=== PATIENT | male | born 1970 | race African-American/Black ===

== ENCOUNTER 2020-10-02 13:57 | Emergency (ER) | payer BC ==
[2020-10-02 15:00] LABS: Basophils % 0.6 % (0-1.3); Hematocrit 46.1 % (39.6-49.0); Lymphocytes % 37.9 % (15.3-44.8); MPV 8.8 fL (7.6-11.3); RBC Red Blood Cell Count 5.09 M/uL (4.33-5.43)
[2020-10-02 15:16] LABS: Protime INR 1.07
[2020-10-02 15:20] LABS: ALT/SGPT 37 U/L (12-78); AST/SGOT 22 U/L (15-37); Albumin 4.3 g/dL (3.4-5.0); Alkaline Phosphatase 57 U/L (45-117); BUN Blood Urea Nitrogen 10 mg/dL (7-18); Bicarbonate 31 mmol/L (21-32); Bilirubin Direct 0.2 mg/dL (0-0.2); Bilirubin Total 0.9 mg/dL (0.2-1.0); Glucose Level 94 mg/dL (74-106); Magnesium 2.3 mg/dL (1.8-2.4); NT PRO-BNP 9 pg/mL (<125); Potassium 4.3 mmol/L (3.5-5.1); Protein, Total 7.9 g/dL (6.4-8.2); Sodium Level 142 mmol/L (136-145); Troponin (Emerg Dept Use Only) < 0.02 ng/mL (0.0-0.045)
--- NOTE | 2020-10-02 16:09 | RAD REPORT ---
EXAM DESCRIPTION: RAD - Chest Single View - 10/02/2020 3:20 pm CLINICAL HISTORY: CHEST PAIN COMPARISON: None TECHNIQUE: AP portable chest image was obtained 10/02/2020 3:20 pm . FINDINGS: Lungs are clear. Cardiomegaly without vascular engorgement. No measurable pleural effusion and no pneumothorax. No acute bony abnormality seen. No acute aortic findings suspected. IMPRESSION: Mild cardiomegaly without other findings of failure or volume overload.
--- NOTE | 2020-10-02 16:48 | EDPHYS ---
Physician Documentation [facility] Name: Danie Ng Age: 49 yrs Sex: Male : 1970 Arrival Date: 10/02/2020 Time: 14:03 Bed 24 Private MD: ED Physician Mateo Smith HPI: 10/02 16:04 This 49 yrs old Black Male presents to ER via Ambulatory with complaints of Chest Pain. jr8 16:04 The patient or guardian reports chest pain that is located primarily in the anterior jr8 chest wall, bilaterally. Onset: suddenly, 1 week(s) ago, and became persistent. The pain does not radiate. Associated signs and symptoms: The patient has no apparent associated signs or symptoms. The chest pain is described as a pressure. Duration: The patient or guardian reports a single episode, that is still ongoing. Modifying factors: The symptoms are alleviated by nothing. the symptoms are aggravated by nothing. Severity of pain: At its worst the pain was moderate in the emergency department the pain is unchanged. The patient has experienced a previous episode. The patient has not recently seen a physician. Patient stated that he has had a small DE back in july or August. Stated that he did not require stents at that time. Last week started with chest pressure that has not gone away nor does it get worse or better . Historical: - Allergies: 14:27 Hydrocodone-Acetaminophen; em - PMHx: 14:27 Hyperlipidemia; Hypertension; Myocardial infarction; em - PSHx: 14:27 right hand; em - Immunization history:: Adult Immunizations up to date. - Social history:: Smoking status: Patient denies any tobacco usage or history of. ROS: 16:04 Eyes: Negative for injury, pain, redness, and discharge, ENT: Negative for injury, jr8 pain, and discharge, Neck: Negative for injury, pain, and swelling, Respiratory: Negative for shortness of breath, cough, wheezing, and pleuritic chest pain, Abdomen/GI: Negative for abdominal pain, nausea, vomiting, diarrhea, and constipation, Back: Negative for injury and pain, MS/Extremity: Negative for injury and deformity, Skin: Negative for injury, rash, and discoloration, Neuro: Negative for headache, weakness, numbness, tingling, and seizure. 16:04 Cardiovascular: Positive for chest pain, Negative for edema, orthopnea, palpitations, paroxysmal nocturnal dyspnea. Exam: 16:04 Constitutional: This is a well developed, well nourished patient who is awake, alert, jr8 and in no acute distress. Neck: Trachea midline, no thyromegaly or masses palpated, and no cervical lymphadenopathy. Supple, full range of motion without nuchal rigidity, or vertebral point tenderness. No Meningismus. Cardiovascular: Regular rate and rhythm with a normal S1 and S2. No gallops, murmurs, or rubs. Normal PMI, no JVD. No pulse deficits. Respiratory: Lungs have equal breath sounds bilaterally, clear to auscultation and percussion. No rales, rhonchi or wheezes noted. No increased work of breathing, no retractions or nasal flaring. Abdomen/GI: Soft, non-tender, with normal bowel sounds. No distension or tympany. No guarding or rebound. No evidence of tenderness throughout. Back: No spinal tenderness. No costovertebral tenderness. Full range of motion. Skin: Warm, dry with normal turgor. Normal color with no rashes, no lesions, and no evidence of cellulitis. MS/ Extremity: Pulses equal, no cyanosis. Neurovascular intact. Full, normal range of motion. Neuro: Awake and alert, GCS 15, oriented to person, place, time, and situation. Cranial nerves II-XII grossly intact. Motor strength 5/5 in all extremities. Sensory grossly intact. Cerebellar exam normal. Normal gait. Vital Signs: 14:24 BP 145 / 103; Pulse 59; Resp 18; Temp 97.8; Pulse Ox 97% on R/A; Weight 96.62 kg; em Height 5 ft. 8 in. (172.72 cm); Pain 4/10; 14:49 BP 159 / 102; Pulse 51; Resp 17; Pulse Ox 100% ; Pain 4/10; jl7 15:30 BP 140 / 96; Pulse 49; Resp 15; Pulse Ox 100% ; jl7 16:30 BP 151 / 98; Pulse 53; Resp 17; Pulse Ox 100% ; jl7 14:24 Body Mass Index 32.39 (96.62 kg, 172.72 cm) em MDM: 14:32 Patient medically screened. jr8 16:44 The patient was not given aspirin in the Emergency Department. Patient reports taking jr8 aspirin within the past 24 hours. Data reviewed: vital signs, nurses notes. Data reviewed: lab test result(s), EKG, radiologic studies, plain films. Data interpreted: Pulse oximetry: on room air is 100 %. Interpretation: normal. Counseling: I had a detailed discussion with the patient and/or guardian regarding: the historical points, exam findings, and any diagnostic results supporting the discharge/admit diagnosis, lab results, radiology results, the need for outpatient follow up, a cashier checker, to return to the emergency department if symptoms worsen or persist or if there are any questions or concerns that arise at home. Special discussion: Based on the patient's history, exam, and Dx evaluation, there is no indication for emergent intervention or inpatient Tx. It is understood by the patient/guardian that if the Sx's persist or worsen they need to return immediately for re-evaluation. ED course: Patient without chest pain at this time. Hemodynamically stable. No elevation on troponin and no EKG changes. Patient had recent cardiac catheterization 2 months ago with no evidence of measurable coronary artery disease needing stenting or ballooning. Recommended f/u with his cashier checker again. If he were to become symptomatic again or became worse in general, that we would want to see him back immediately. Patient good with this plan. 10/02 14:33 Order name: Basic Metabolic Panel 10/02 14:33 Order name: CBC with Diff 10/02 14:33 Order name: LFT's; Complete Time: 15:27 10/02 14:33 Order name: Magnesium; Complete Time: 15:27 10/02 14:33 Order name: NT PRO-BNP; Complete Time: 15:27 10/02 14:33 Order name: PT-INR; Complete Time: 15:27 10/02 14:33 Order name: Troponin (emerg Dept Use Only); Complete Time: 15:27 10/02 14:33 Order name: XRAY Chest (1 view); Complete Time: 16:12 10/02 14:33 Order name: EKG; Complete Time: 14:33 10/02 14:33 Order name: Cardiac monitoring; Complete Time: 14:49 10/02 14:33 Order name: EKG - Nurse/Tech; Complete Time: 14:49 10/02 14:33 Order name: IV Saline Lock; Complete Time: 14:49 [facility] 10/02 14:33 Order name: Basic Metabolic Panel; Complete Time: 15:27 [facility] 10/02 14:33 Order name: CBC with Automated Diff; Complete Time: 15:14 [facility] 10/02 14:33 Order name: Labs collected and sent; Complete Time: 14:49 [facility] 10/02 14:33 Order name: O2 Per Protocol; Complete Time: 14:49 [facility] 10/02 14:33 Order name: O2 Sat Monitoring; Complete Time: 14:49 [facility] Administered Medications: No medications were administered Disposition: 18:17 Co-signature as Attending Physician, Mateo Smith MD I agree with the assessment and kdr plan of care. Disposition: 10/02/20 16:47 Discharged to Home. Impression: Chest pain, unspecified. - Condition is Stable. - Discharge Instructions: Nonspecific Chest Pain, Aspirin and Your Heart, Chest Pain Observation. - Medication Reconciliation Form, Thank You Letter, Antibiotic Education, Prescription Opioid Use form. - Follow up: Private Physician; When: 2 - 3 days; Reason: Recheck today's complaints, Continuance of care, Re-evaluation by your physician. - Problem is new. - Symptoms are resolved. Signatures: Dispatcher [employer] [facility] Mateo Smith MD MD [facility] Mitch Saldaña, Markel Humphrey RN, PA PA jr8 Aj Murrieta RN RN jl7 Corrections: (The following items were deleted from the chart) 17:07 16:47 10/02/2020 16:47 Discharged to Home. Impression: Chest pain, unspecified. jl7 Condition is Stable. Forms are Medication Reconciliation Form, Thank You Letter, Antibiotic Education, Prescription Opioid Use. Follow up: Private Physician; When: 2 - 3 days; Reason: Recheck today's complaints, Continuance of care, Re-evaluation by your physician. Problem is new. Symptoms are resolved. jr8
--- NOTE | 2020-10-02 16:48 | ER ---
Nurse's Notes [facility] Name: Danie Ng Age: 49 yrs Sex: Male : 1970 Arrival Date: 10/02/2020 Time: 14:03 Bed 24 Private MD: Diagnosis: Chest pain, unspecified Presentation: 10/02 14:24 Chief complaint: Patient states: chest pain that started on Monday, has had a previous em "mild heart attack" in July, denies N/V or shortness of breath, was seen at [facility] and told to come here, EKG done at the [facility], shows sinus rhythm. Coronavirus screen: Client denies travel out of the [place] in the last 14 days. Ebola Screen: Patient negative for fever greater than or equal to 101.5 degrees Fahrenheit, and additional compatible Ebola Virus Disease symptoms Patient denies exposure to infectious person. Patient denies travel to an Ebola-affected area in the 21 days before illness onset. No symptoms or risks identified at this time. Initial Sepsis Screen: Does the patient meet any 2 criteria? No. Patient's initial sepsis screen is negative. Does the patient have a suspected source of infection? No. Patient's initial sepsis screen is negative. Risk Assessment: Do you want to hurt yourself or someone else? Patient reports no desire to harm self or others. Onset of symptoms was October 02, 2020. 14:24 Method Of Arrival: Ambulatory em 14:24 Acuity: VINAY 3 em Historical: - Allergies: 14:27 Hydrocodone-Acetaminophen; em - PMHx: 14:27 Hyperlipidemia; Hypertension; Myocardial infarction; em - PSHx: 14:27 right hand; em - Immunization history:: Adult Immunizations up to date. - Social history:: Smoking status: Patient denies any tobacco usage or history of. Screenin:49 Abuse screen: Denies threats or abuse. Denies injuries from another. Nutritional jl7 screening: No deficits noted. Tuberculosis screening: No symptoms or risk factors identified. Fall Risk IV access (20 points). Total [place] Fall Scale indicates No Risk (0-24 pts). Assessment: 14:49 General: Appears in no apparent distress. uncomfortable, Behavior is calm, cooperative, jl7 appropriate for age. Pain: Complains of pain in mid-sternal area Pain radiates to right axilla Pain currently is 4 out of 10 on a pain scale. Quality of pain is described as pressure, Pain began x 5 days Is continuous. Neuro: Level of Consciousness is awake, alert, obeys commands, Oriented to person, place, time, situation. Cardiovascular: Patient's skin is warm and dry. Rhythm is regular. Respiratory: Airway is patent Respiratory effort is even, unlabored, Respiratory pattern is regular, symmetrical. Derm: Skin is dry, Skin is normal, Skin temperature is warm. 16:00 Reassessment: Patient appears in no apparent distress at this time. No changes from jl7 previously documented assessment. Patient and/or family updated on plan of care and expected duration. Pain level reassessed. Patient is alert, oriented x 3, equal unlabored respirations, skin warm/dry/pink. Vital Signs: 14:24 BP 145 / 103; Pulse 59; Resp 18; Temp 97.8; Pulse Ox 97% on R/A; Weight 96.62 kg; em Height 5 ft. 8 in. (172.72 cm); Pain 4/10; 14:49 BP 159 / 102; Pulse 51; Resp 17; Pulse Ox 100% ; Pain 4/10; jl7 15:30 BP 140 / 96; Pulse 49; Resp 15; Pulse Ox 100% ; jl7 16:30 BP 151 / 98; Pulse 53; Resp 17; Pulse Ox 100% ; jl7 14:24 Body Mass Index 32.39 (96.62 kg, 172.72 cm) em ED Course: 14:03 Patient arrived in ED. mr 14:26 Triage completed. em 14:27 Arm band placed on. em 14:29 [facility] jr8 14:29 Mateo Smith MD is Attending Physician. jr8 14:49 Aj Murrieta RN is Primary Nurse. jl7 14:49 Patient has correct armband on for positive identification. Placed in gown. Bed in low jl7 position. Call light in reach. Side rails up X 1. case monitor on. Pulse ox on. NIBP on. Warm blanket given. 14:49 Initial lab(s) drawn, by tx, sent to lab. EKG done, by ED staff, reviewed by Markel CANCHOLA. Inserted saline lock: 20 gauge in right antecubital area, using aseptic technique. Blood collected. Patient maintains SpO2 saturation greater than 95% on room air. 15:20 XRAY Chest (1 view) In Process Unspecified. EDMS 17:06 No provider procedures requiring assistance completed. IV discontinued, intact, sameer bleeding controlled, No redness/swelling at site. Pressure dressing applied. Administered Medications: No medications were administered Outcome: 16:47 Discharge ordered by . gucci 17:06 Discharged to home ambulatory. sameer 17:06 Condition: stable 17:06 Discharge instructions given to patient, Instructed on discharge instructions, follow up and referral plans. Demonstrated understanding of instructions, follow-up care. 17:07 Patient left the ED. sameer Signatures: Dispatcher [employer] Heather Melgar mr Mitch Saldaña, RN RN Markel Thomas PA PA jr8 Leal, Jahala, RN RN jl7
[2020-10-02 17:17] VITALS: TEMP 97.8
[2020-10-02 17:19] VITALS: O2SAT 100
[2020-10-02 17:22] VITALS: BP 151/98
== END 2020-10-02 17:07 | disposition home or self-care (01) ==
LOC: ER 13:57
DX: R07.9 Chest pain, unspecified (principal); I10 Essential (primary) hypertension; I25.2 Old myocardial infarction; Z88.5 Allergy status to narcotic agent
CPT/HCPCS: 36415; 71045; 80048; 80076; 83735; 83880; 84484; 85025; 85610; 93005; 99285